=== PATIENT | female | born 1965 | race Caucasian/White ===

== ENCOUNTER 2018-04-21 19:25 | Emergency (ER) | payer MEDICAID ==
[~2018-04-21] VITALS: Ht 157.5 cm; Wt 72.6 kg
[2018-04-21 19:33] VITALS: Ht 157.5 cm; Wt 72.6 kg
[2018-04-21 23:07] VITALS: BP 149/93
== END 2018-04-21 23:07 | disposition home or self-care (01) ==
LOC: ED 19:25
DX: R19.09 Other intra-abdominal and pelvic swelling, mass and lump (principal); F41.9 Anxiety disorder, unspecified
CPT/HCPCS: 87491; 87591; J1885